=== PATIENT | male | born 1965 | race Caucasian/White ===

== ENCOUNTER 2020-02-09 09:06 | Emergency (ER) | payer OTHER ==
--- NOTE | 2020-02-09 09:49 | ER Document Report ---
ED General - General Chief Complaint: Shortness Of Breath Stated Complaint: NIGHT SWEATS/SHORTNESS OF BREATH Time Seen by Provider: 02/09/20 09:48 Primary Care Provider: SARAH BERGMAN MD [Primary Care Provider] - Follow up as needed - HPI Notes: Patient to the ED with complaint of night sweats and fever for the past 4-5 days. Reports he has woken up each night soaked in sweat. Also has some SOB but reports that he is a smoker. No known contact with sick people. - Related Data Home Medications: Losartan Past Medical History - Social History Smoking Status: Current Every Day Smoker Chew tobacco use (# tins/day): No Frequency of alcohol use: Social Drug Abuse: Marijuana Patient has suicidal ideation: No Patient has homicidal ideation: No - Past Medical History Cardiac Medical History: Reports: Hx Hypertension Physical Exam - Vital signs Vitals: Temp Pulse Resp BP Pulse Ox 98.1 F 74 20 188/84 H 93 02/09/20 09:07 02/09/20 09:07 02/09/20 09:07 02/09/20 09:07 02/09/20 09:07 Course - Vital Signs Vital signs: Temp Pulse Resp BP Pulse Ox 98.1 F 74 20 188/84 H 93 02/09/20 09:34 02/09/20 09:07 02/09/20 09:07 02/09/20 09:07 02/09/20 09:07 Discharge - Discharge Referrals: SARAH BERGMAN MD [Primary Care Provider] - Follow up as needed
--- NOTE | 2020-02-09 10:36 | ER Document Report ---
ED General - General Chief Complaint: Shortness Of Breath Stated Complaint: NIGHT SWEATS/SHORTNESS OF BREATH Time Seen by Provider: 02/09/20 09:48 Primary Care Provider: SARAH BERGMAN MD [Primary Care Provider] - Follow up as needed Notes: 54-year-old man presents to the emergency department with a history of dry cough for the past week with associated night sweats for the past 3 nights. He states he has been a smoker all his life and has been feeling fatigued with associated concerns for lung related infection. He spoke with a EMT and the concern for possible tuberculosis was raised. He is also concerned about the COVID virus. He denies known fever, myalgias, loss of sense of smell or taste. He also de nies known exposure to a COVID positive individual. - Related Data Home Medications: Losartan Past Medical History - Social History Smoking Status: Current Every Day Smoker Chew tobacco use (# tins/day): No Frequency of alcohol use: Social Drug Abuse: Marijuana Family History: Reviewed & Not Pertinent Patient has suicidal ideation: No Patient has homicidal ideation: No - Past Medical History Cardiac Medical History: Reports: Hx Hypertension Review of Systems - Review of Systems Notes: Constitutional: + Night sweats. HENT: Negative for sore throat. Eyes: Negative for visual changes. Cardiovascular: Negative for chest pain. Respiratory: + Cough, no shortness of breath. Gastrointestinal: Negative for abdominal pain, vomiting or diarrhea. Genitourinary: Negative for dysuria. Musculoskeletal: Negative for back pain. Skin: Negative for rash. Neurological: Negative for headaches, weakness or numbness. 10 point ROS negative except as marked above and in HPI. Physical Exam - Vital signs Vitals: Temp Pulse Resp BP Pulse Ox 98.1 F 74 20 188/84 H 93 02/09/20 09:07 02/09/20 09:07 02/09/20 09:07 02/09/20 09:07 02/09/20 09:07 - Notes Notes: PHYSICAL EXAMINATION: Physical Exam: General: Overweight well-developed 84-year-old male in in no acute distress HEENT: NC/AT, pupils equal round and reactive to light, MM moist,nares clear, oropharynx clear, airway patent Neck: supple, no adenopathy, no masses. Good range of motion Lungs: clear, no wheezing, no rales no rhonchi CVS: Regular rate and rhythm no murmur gallop or rub Abdomen: Soft, active, nontender, no masses, no hepatosplenomegaly Ext: No edema, clubbing or cyanosis. Neuro: Alert and responsive, moving all 4 extremities on command, cranial nerves intact, no focal findings Skin: Intact no open lesions, no rash PSYCH: Normal mood, normal affect. Course - Re-evaluation Re-evalutation: 02/09/20 12:46 Patient evaluation was completed with a normal x-ray, labs, influenza testing and strep. He was very relieved to find out that he did not have abnormalities on his chest x-ray as he has been a longtime smoker. Patient states he feels fine he does not want to undergo COVID testing. His concerns were possible lung cancer and with a normal x-ray he is now ready to go home. - Vital Signs Vital signs: Temp Pulse Resp BP Pulse Ox 98.3 F 64 16 168/93 H 95 02/09/20 13:49 02/09/20 13:49 02/09/20 13:49 02/09/20 13:49 02/09/20 13:49 - Laboratory Result Diagrams: 02/09/20 10:18 02/09/20 10:18 Laboratory results interpreted by me: 02/09/20 10:18 ALT 60 H I have reviewed laboratory data and used this information for the treatment decisions regarding the patient. - Diagnostic Test Radiology reviewed: Image reviewed, Reports reviewed - Chest x-ray: Negative, no infiltrates, no effusion - EKG Interpretation by Me EKG shows normal: Sinus rhythm - Rate of 61, no acute ST or T wave abnormalities seen, normal electrocardiogram Discharge - Discharge Clinical Impression: Bronchitis, Unexplained night sweats, Cigarette smoker Condition: Good Disposition: HOME, SELF-CARE Instructions: Bronchitis ([facility]) Additional Instructions: You are diagnosed with bronchitis in the emergency department today. Please continue to try to discontinue cigarette smoking. Please take the antibiotics as prescribed. Please follow-up with your doctor if the night sweats are not improving. If your symptoms are worsening or if you have other concerns you may return to the emergency department. HOME CARE INSTRUCTIONS & INFORMATION: Thank you for choosing us for your medical needs. We hope you're satisfied with the care you received. After you leave, you must properly care for your problem and, at the same time, observe its progress. Any condition can change. Some illnesses can change rapidly over hours or days. If your condition worsens, return to the Emergency Department or see your physician promptly. ABOUT YOUR X-RAYS AND EKG'S: If you had an EKG or X-rays taken, they have been read by the Emergency Physician. The X-rays and EKG's will also be read by a Radiologist or Coal Picker within 24 hours. If discrepancies are noted, you will be notified by telephone. Please be certain the ED has a correct telephone number & address where you can be reached. Also, realize that some fractures or abnormalities do not show up on initial X-rays. If your symptoms continue, see your physician. ABOUT YOUR LABORATORY TEST: If you had laboratory tests, the results have been reviewed by the Emergency Physician. Some test results (for example cultures) may not be available for several days. You will be contacted if any test result shows you need additional treatment. Please be certain the ED has a correct telephone number and address where you can be reached. ABOUT YOUR MEDICATIONS: You will receive instructions on how to take your medicine on the prescription label you receive. Additional information may be provided by the Pharmacy. If you have questions afterwards, call the ED for clarification or further instructions. Some prescribed medications may cause drowsiness. Do not perform tasks such as driving a car or operating machinery without consulting your Pharmacist. If you feel you need a refill of pain medication, your condition will need re-evaluation. Please do not call for a refill of any medication. ABOUT YOUR SIGNATURE: Signature of this document acknowledges to followin. Understanding that you received emergency treatment and that you may be released before al medical problems are known or treated. Please be certain the ED has a correct phone number & address where you can be reached. 2. Acknowledgement that you will arrange for follow-up care as recommended. 3. Authorization for the Emergency Physician to provide information to your follow-up Physician in order to maximize your care. AT ANY TIME, IF YOUR SYMPTOMS CHANGE SIGNIFICANTLY OR WORSEN OR YOU DEVELOP NEW SYMPTOMS, RETURN TO THE EMERGENCY DEPARTMENT IMMEDIATELY FOR RE-EVALUATION. OUR GOAL IS TO PROVIDE EXCELLENT MEDICAL CARE! WE HOPE THAT WE HAVE MET YOUR EXPECTATIONS DURING YOUR EMERGENCY DEPARTMENT VISIT AND THAT YOU FEEL YOU HAVE RECEIVED EXCELLENT CARE! Prescriptions: Doxycycline Monohydrate 100 mg PO BID #20 capsule Forms: Smoking Cessation Education Referrals: BERGMAN,SARAH, MD [Primary Care Provider] - Follow up as needed
[2020-02-09 10:44] LABS: ABSOLUTE BASOPHILS # (AUTO) 0.1 10^3/uL (0.0-0.2); ABSOLUTE EOSINOPHILS # (AUTO) 0.2 10^3/uL (0.0-0.6); ABSOLUTE LYMPHOCYTES (AUTO) 2.4 10^3/uL (0.5-4.7); BASOPHILS % (AUTO) 1.2 % (0-2); EOSINOPHILS % (AUTO) 2.2 % (0-6); HEMATOCRIT 44.4 % (37.9-51.0); HEMOGLOBIN 15.6 g/dL (13.5-17.0); LYMPHOCYTES % (AUTO) 27.7 % (13-45); MEAN CORPUSCULAR HEMOGLOBIN 31.8 pg (27.0-33.4); MEAN CORPUSCULAR HGB CONC 35.1 g/dL (32.0-36.0); MEAN CORPUSCULAR VOLUME 90 fl (80-97); MONOCYTES % (AUTO) 11.9 % (3-13); PLATELET COUNT 215 10^3/uL (150-450); RED BLOOD COUNT 4.91 10^6/uL (4.35-5.55); RED CELL DISTRIBUTION WIDTH 12.6 % (11.5-14.0); TOTAL CELLS COUNTED % (AUTO) 100 %; WHITE BLOOD COUNT 8.8 10^3/uL (4.0-10.5)
--- NOTE | 2020-02-09 10:46 | RADIOLOGY REPORT (SQ) ---
EXAM DESCRIPTION: CHEST SINGLE VIEW IMAGES COMPLETED DATE/TIME: 02/09/2020 10:27 am REASON FOR STUDY: sob COMPARISON: None. NUMBER OF VIEWS: One view. TECHNIQUE: Single frontal radiographic view of the chest acquired. LIMITATIONS: None. FINDINGS: LUNGS AND PLEURA: No opacities, masses or pneumothorax. No pleural effusion. MEDIASTINUM AND HILAR STRUCTURES: No masses. Contour normal. HEART AND VASCULAR STRUCTURES: Heart normal in size. Normal vasculature. BONES: No acute findings. HARDWARE: None in the chest. OTHER: No other significant finding. IMPRESSION: NO SIGNIFICANT RADIOGRAPHIC FINDING IN THE CHEST. TECHNICAL DOCUMENTATION: JOB ID: [id number] 2010 [employer]- All Rights Reserved Reading location - IP/workstation name: [email or web address]
[2020-02-09 10:53] LABS: APPEARANCE,URINE CLEAR; BILIRUBIN,URINE NEGATIVE (NEGATIVE); COLOR,URINE YELLOW; GLUCOSE, URINE NEGATIVE (NEGATIVE); KETONES,URINE NEGATIVE (NEGATIVE); LEUKOCYTE ESTERASE,URINE NEGATIVE (NEGATIVE); NITRITE,URINE NEGATIVE (NEGATIVE); PROTEIN,URINE NEGATIVE (NEGATIVE); URINE SPECIFIC GRAVITY 1.021; UROBILINOGEN,URINE NEGATIVE mg/dL (<2.0)
[2020-02-09 11:01] LABS: ALBUMIN 4.5 g/dL (3.5-5.0); ALKALINE PHOSPHATASE 45 U/L (38-126); ANION GAP 9 (5-19); ASPARTATE AMINO TRANSFERASE 36 U/L (17-59); BILIRUBIN,TOTAL 0.7 mg/dL (0.2-1.3); BLOOD UREA NITROGEN 19 mg/dL (7-20); CALCIUM 9.3 mg/dL (8.4-10.2); CARBON DIOXIDE 23 mmol/L (22-30); CHLORIDE 105 mmol/L (98-107); GLUCOSE 108 mg/dL (75-110); POTASSIUM 4.7 mmol/L (3.6-5.0); TOTAL PROTEIN 7.6 g/dL (6.3-8.2)
[2020-02-09 11:06] LABS: A TYPE INFLUENZA AG NEGATIVE (NEGATIVE); B INFLUENZA AG NEGATIVE (NEGATIVE)
[2020-02-09 11:25] LABS: NT PRO BNP 110 pg/mL (<125)
[2020-02-09 11:38] LABS: TROPONIN I < 0.012 ng/mL
[2020-02-09 13:50] VITALS: BP 168/93
--- NOTE | 2020-02-09 23:58 | EKG REPORT ---
SEVERITY:- NORMAL ECG - SINUS RHYTHM : Confirmed by: Enrrique Gonzalez 09-Feb-2020 23:57:52
== END 2020-02-09 13:51 | disposition home or self-care (01) ==
LOC: ER 09:06
DX: J40 Bronchitis, not specified as acute or chronic (principal); R61 Generalized hyperhidrosis; F17.210 Nicotine dependence, cigarettes, uncomplicated; R05 Cough; R53.83 Other fatigue; F12.10 Cannabis abuse, uncomplicated
CPT/HCPCS: 36415; 71045; 80053; 81001; 83880; 84484; 85025; 87070; 87804; 87880; 93005; 93010; 99284